=== PATIENT | female | born 2000 | race African-American/Black ===

== ENCOUNTER 2023-11-29 17:49 | Emergency (ER) | payer SELFPAY ==
[2023-11-29 18:27] LABS: Absolute Eosinophils 0.1 K/uL (0-0.5); Absolute Lymphocytes (CBC) 1.5 K/uL (0.7-4.9); Absolute Monocytes 0.4 K/uL (0.1-1.3); Absolute Neutrophil 2.2 K/uL (1.8-8.0); Basophils % 0.8 % (0-1.3); Eosinophils % 1.8 % (0-4.4); Hematocrit 40.8 % (36.0-45.0); Hemoglobin 13.3 g/dL (12.0-15.0); Lymphocytes % 36.1 % (15.3-44.8); MCH 24.6 pg (27.0-35.0); MCHC 32.5 g/dL (32.0-36.0); MCV 75.5 fL (80-100); Monocytes % 8.6 % (3.3-12.3); Neutrophils % 52.7 % (41.7-73.7); Nucleated Red Blood Cells % 0.3 % (0-0); Platelets 254 thou/uL (152-406); Red Cell Distribution Width 14.5 % (12.1-15.2)
[2023-11-29] MEDS ORDERED: ZIPRASIDONE MESYLA 20 MG/VIAL IM ONE (18:36)
[2023-11-29] MEDS ORDERED: WATER FOR INJ,STERILE 10 ML ONE (18:37)
[2023-11-29 18:47] LABS: PT Prothrombin Time 12.7 SECONDS (9.5-12.5); PTT, Activated Partial Thromb 35.3 SECONDS (24.3-36.9); Protime INR 1.16
[2023-11-29 18:51] LABS: ALT/SGPT 19 U/L (13-56); AST/SGOT 16 U/L (15-37); Albumin 3.7 g/dL (3.4-5.0); Alkaline Phosphatase 56 U/L (45-117); Anion Gap 8.1 mEq/L (5.0-15.0); BUN Blood Urea Nitrogen 9 mg/dL (7-18); Bicarbonate 27 mEq/L (21-32); Bilirubin Direct 0.2 mg/dL (0-0.2); Bilirubin Indirect, Calculated 0.3 mg/dL (0.2-0.8); Bilirubin Total 0.5 mg/dL (0.2-1.0); Globulin 3.8 g/dL (2.3-3.5); Glomerular Filtration Rate 107 ml/min (=/>90); Glucose Level 98 mg/dL (74-106); Potassium 3.1 mEq/L (3.5-5.1); Protein, Total 7.5 g/dL (6.4-8.2); Sodium Level 142 mEq/L (136-145)
--- NOTE | 2023-11-30 02:38 | EDPHYS ---
Physician Documentation [facility] Name: Jessica Boateng Age: 23 yrs Sex: Female : 2000 Arrival Date: 11/29/2023 Time: 17:49 Bed 7 Private MD: ED Physician Moncho Chand HPI: 11/28 18:07 This 23 yrs old Black Female presents to ER via EMS with complaints of agitation. sb4 18:13 Patient was brought in by EMS, escorted by PD. Per report, she was trying to enter the [facility] wrong apartment this afternoon. Uncle states that she got aggressive and was throwing/breaking chairs. He states that she has been off of her medications for her bipolar disorder. He also does not think she has been eating or drinking or showering. Patient denies any thoughts or plans of harming herself or others. States that she has been taking her medications but has just been "low "on some of them. States she takes clonidine, hydroxyzine, and iron pills. She does not know the dosage of any of them. PD placed her on an ZEE. CELERY STRIPPER: 18:14 LMP N/A - , Not mb9 Historical: - Allergies: 17:58 No Known Allergies; mb9 - Home Meds: 17:58 Clonazepam Oral [Active]; Clonidine Oral [Active]; mb9 - PMHx: 17:58 Bipolar disorder; mb9 - PSHx: 17:58 None; mb9 - Immunization history:: Adult Immunizations up to date. - Infectious Disease History:: Denies. - Social history:: Smoking status: Patient denies any tobacco usage or history of. ROS: 18:13 Constitutional: Negative for fever, chills, and weight loss, sb4 18:13 All other systems are negative, Exam: 18:13 Head/Face: Normocephalic, atraumatic. Eyes: Extra-ocular motions intact. Periorbital sb4 areas with no swelling, redness, or edema. Skin: Warm, dry with normal turgor. Normal color with no rashes, no lesions, and no evidence of cellulitis. MS/ Extremity: Pulses equal, no cyanosis. Neurovascular intact. Full, normal range of motion. 18:13 Constitutional: The patient appears in no acute distress, alert, awake, unkempt, odor- body odor 18:13 Psych: Behavior/mood is cooperative, Affect is calm, Oriented to person, place, time, Patient has no thoughts/intents to harm self or others. Judgement / Insight is normal. Delusions/hallucinations are not present. Vital Signs: 17:55 BP 140 / 86; Pulse 95; Resp 18; Temp 98; Pulse Ox 100% ; Weight 83.91 kg; Height 5 ft. mb9 5 in. ; Pain 0/10; 11/29 03:16 BP 138 / 84; Pulse 88; Resp 17; Pulse Ox 98% on R/A; kd3 11/28 17:55 Body Mass Index 30.79 (83.91 kg, 165.1 cm) mb9 11/28 17:55 Pain Scale: Adult mb9 MDM: 11/28 17:52 Patient medically screened. sb4 18:13 ED course: PD placed patient under ZEE and has contacted [facility] to come evaluate sb4 patient. 18:46 ED course: patient eloped from ED. code hendricks activated, PD notified. security escorted sb4 patient back to room. patient now being very uncooperative- cussing, kicking, screaming. soft restraints applied, geodon administered. PD at bedside. 20:04 ED course: patient reassessed, is sleepy but arousable. [facility] contacted and will [facility] evaluate patient via phone call when she is more awake. 21:59 ED course: patient reassessed. no change. still sleepy but arousable. not alert enough [facility] for [facility] evaluation.. 11/29 00:29 Data reviewed: vital signs, nurses notes, lab test result(s), EKG, radiologic studies. sb4 ED course: patient is awake, ready and requesting to speak with [facility]. 00:41 ED course: [facility] will be here in 1 hour and 15 min. sb4 02:06 ED course: alan whittaker at bedside. sb4 02:36 Management of patient was discussed with the following: Behavioral Health Provider: [facility] recommends outpatient follow up. Counseling: I had a detailed discussion with the patient and/or guardian regarding the historical points, exam findings, and any diagnostic results supporting the discharge/admit diagnosis, lab results, radiology results, the need for outpatient follow up, a psychiatrist, to return to the emergency department if symptoms worsen or persist or if there are any questions or concerns that arise at home. 11/28 18:11 Order name: Acetaminophen; Complete Time: 18:55 sb4 11/28 18:11 Order name: Basic Metabolic Panel; Complete Time: 18:55 sb4 11/28 18:11 Order name: CBC with Diff; Complete Time: 18:36 sb4 11/28 18:11 Order name: ETOH Level; Complete Time: 18:58 sb4 11/28 18:11 Order name: Hepatic Function; Complete Time: 18:55 sb4 11/28 18:11 Order name: PT-INR; Complete Time: 18:48 sb4 11/28 18:11 Order name: Ptt, Activated; Complete Time: 18:48 sb4 11/28 18:11 Order name: Salicylate; Complete Time: 18:58 sb4 11/28 18:11 Order name: EKG; Complete Time: 18:12 sb4 11/28 18:06 Order name: PO challenge; Complete Time: 18:06 sb4 11/28 18:11 Order name: EKG - Nurse/Tech; Complete Time: 18:21 sb4 11/28 18:11 Order name: Labs collected and sent; Complete Time: 18:21 sb4 11/28 18:11 Order name: Suicide Screening ([place]); Complete Time: 18:13 sb4 11/28 18:55 Order name: Restraint:Violent/Self Destructive (Adult:18yo or >); Complete Time: 18:56 sb4 EC/27 18:35 Rate is 114 beats/min. Rhythm is regular, Sinus tachycardia. VT interval is normal at sb4 138 msec. QRS interval is normal at 78 msec. QT interval is normal at 334 msec. No Q waves. T waves are Normal. No ST changes noted. Clinical impression: Sinus tachycardia and No evidence of ischemia. Interpreted by me. Reviewed by me. Administered Medications: 18:42 Drug: Geodon IM 10 mg IM once Route: IM; Site: left vastus lateralis; mb9 11/29 03:18 Follow up: Response: No adverse reaction kd3 Disposition Summary: 11/30/23 02:37 Discharge Ordered Notes: Location: Home sb4 Problem: new sb4 Symptoms: have improved sb4 Condition: Stable sb4 Diagnosis - Bipolar disorder, unspecified sb4 - Restlessness and agitation sb4 - Patient's other noncompliance with medication regimen sb4 Followup: sb4 - With: Private Physician - When: Tomorrow - Reason: Recheck today's complaints, Re-evaluation by your physician Discharge Instructions: - Discharge Summary Sheet sb4 - Managing Bipolar Disorder sb4 Forms: - Patient Portal Instructions sb4 - Leadership Thank You Letter sb4 Signatures: Dispatcher [employer] Savita Vargas PA-C PA-C sb4 Celina Arciniega RN RN mb9 Kait Jennings RN kd3 Corrections: (The following items were deleted from the chart) 11/28 18:21 18:11 IV Saline Lock ordered. sb4 mb9
--- NOTE | 2023-11-30 02:38 | ER ---
Nurse's Notes [facility] Name: Jessica Boateng Age: 23 yrs Sex: Female : 2000 Arrival Date: 11/29/2023 Time: 17:49 Bed 7 Private MD: Diagnosis: Bipolar disorder, unspecified;Restlessness and agitation;Patient's other noncompliance with medication regimen Presentation: 11/28 17:55 Chief complaint: EMS states: "Friend at apartment states that pt ran out of unknown mb9 bipolar Medication for the past few days. Pt was trying to get into the wrong apartment and threw a chair at the wall. Pt unwilling to answer questions.". Coronavirus screen: At this time, the client does not indicate any symptoms associated with coronavirus-19. Ebola Screen: No symptoms or risks identified at this time. Initial Sepsis Screen: Does the patient meet any 2 criteria? No. Patient's initial sepsis screen is negative. Does the patient have a suspected source of infection? No. Patient's initial sepsis screen is negative. Risk Assessment: Do you want to hurt yourself or someone else? Patient reports no desire to harm self or others. Onset of symptoms. 17:55 Method Of Arrival: EMS: [facility] 9 17:55 Acuity: ALEXEI 2 mb9 Triage Assessment: 17:59 General: Appears unkempt, Behavior is cooperative, agitated. Pain: Denies pain. EENT: mb9 No signs and/or symptoms were reported regarding the EENT system. Neuro: Hendrix Agitation-Sedation Scale (RASS): 0 - Alert and Calm Level of Consciousness is awake, alert, obeys commands, Oriented to person, place, situation. Cardiovascular: Patient's skin is warm and dry. Respiratory: Airway is patent Respiratory effort is even, unlabored, Respiratory pattern is regular, symmetrical. GI: No signs and/or symptoms were reported involving the gastrointestinal system. : No signs and/or symptoms were reported regarding the genitourinary system. Derm: Skin is pink, warm \\T\\ dry. Musculoskeletal: Range of motion: intact in all extremities. WARP TENSION TESTER: 18:14 LMP N/A - , Not mb9 Historical: - Allergies: 17:58 No Known Allergies; mb9 - Home Meds: 17:58 Clonazepam Oral [Active]; Clonidine Oral [Active]; mb9 - PMHx: 17:58 Bipolar disorder; mb9 - PSHx: 17:58 None; mb9 - Immunization history:: Adult Immunizations up to date. - Infectious Disease History:: Denies. - Social history:: Smoking status: Patient denies any tobacco usage or history of. Screenin:[facility] ED Fall Risk Assessment (Adult) History of falling in the last 3 months, mb9 including since admission No falls in past 3 months (0 pts) Confusion or Disorientation No (0 pts) Intoxicated or Sedated No (0 pts) Impaired Gait No (0 pts) Mobility Assist Device Used No (0 pt) Altered Elimination No (0 pt) Score/Fall Risk Level 0 - 2 = Low Risk Oriented to surroundings, Maintained a safe environment, Educated pt \\T\\ family on fall prevention, incl call for assistance when getting out of bed. Abuse screen: Denies threats or abuse. Nutritional screening: No deficits noted. Tuberculosis screening: No symptoms or risk factors identified. Assessment: 17:55 Reassessment: [place] [employer] at bedside. mb9 17:55 Reassessment: pt denies any suicidal or homicidal ideations. mb9 18:30 Reassessment: Pt wandering ER halls and refusing to go back to room. Pt hitting [facility] and doors. Lyla nieves called and Radha GRIGGS notified. 18:40 Reassessment: Radha GRIGGS at bedside. Pt punching, screaming, cussing, and hitting [facility] staff/PD. 23:06 General: Appears in no apparent distress. Behavior is drowsy, quiet. General: Pt kd3 remains sedated. Pt is resting in the stretcher with eyes closed. NAD. respirations are even and unlabored. Skin is warm and dry. . Respiratory: Airway is patent Trachea midline Respiratory effort is even, unlabored, Respiratory pattern is regular, symmetrical. 11/29 03:14 General: Appears in no apparent distress. Behavior is calm, cooperative. General: Pt kd3 was evaluated at the bedside and was recommended to follow up out patient. Pt verbalizes understanding of follow up direction and provided discharge instructions. Pt has no new questions or requests at this time. Pt discharged from ED. . Neuro: Level of Consciousness is awake, alert, obeys commands, Oriented to person, place, time, situation. Vital Signs: 11/28 17:55 BP 140 / 86; Pulse 95; Resp 18; Temp 98; Pulse Ox 100% ; Weight 83.91 kg; Height 5 ft. mb9 5 in. ; Pain 0/10; 11/29 03:16 BP 138 / 84; Pulse 88; Resp 17; Pulse Ox 98% on R/A; kd3 11/28 17:55 Body Mass Index 30.79 (83.91 kg, 165.1 cm) mb9 11/28 17:55 Pain Scale: Adult mb9 ED Course: 11/28 17:51 Patient arrived in ED. sb4 17:51 Savita Mathias PA-C is PHCP. sb4 17:52 Moncho Chand MD is Attending Physician. sb4 17:54 Celina Arciniega, ESTEFANIA is Primary Nurse. mb9 17:55 Arm band placed on. mb9 17:57 Triage completed. mb9 17:59 Placed in gown. Bed in low position. Call light in reach. Side rails up X 1. Provided mb9 Education on: press call light if needing anything. Client placed on continuous cardiac and pulse oximetry monitoring. NIBP monitoring applied. 18:00 No provider procedures requiring assistance completed. mb9 18:10 Patient requests food. Patient requests liquids. mb9 18:30 CALLED RADHA vanegas 19:00 Safety checks: Items removed: yes. Door open/sign placed on door: yes. Family/friend ty present: no. Sitter present: Yes. 19:00 Sitter at bedside. ty 19:10 Patient slamming right arm and elbow on bed asking to leave. ty 19:15 Patients right wrist freed from restraint. Four point restraints checked and adjusted ty to allow patient to sit up and drink water, patient concerned about choking on water. Diet: Patient given water. Tolerated well Required assistance. Due to restraints. 19:25 Patient asleep. ty 19:31 Patient checked for abrasions or wounds, none visible at this time. ty 19:45 spoke with Gilma Luna at transfer center, started columbaal stated once patient wakes up to call back to do an over the phone evaluation. 19:58 Attempted to speak with PT regarding speaking to [facility] PT not able to at this ty time. Reassess at 2100. 20:40 Restraints removed from PT. ty 21:07 Reassessed PT to speak with [facility] PT is still unable to speak with [facility]. ty 22:14 Reassessed PT to spaeak with [facility] PT unable to hold conversation. ty 11/29 01:58 [facility] arrived for a face to face Evaluation. vk 03:17 Patient did not have IV access during this emergency room visit. kd3 Restraints: 11/28 18:45 Violent/Self Destructive Restraint: Restraint Order: Initial/Renewal: Initial order mb9 obtained. Initiated November 29, 2023 at 18:45 Staff present during the initiation of restraint: Jeff RN. Radha RODRÍGUEZ . Family Notification/Education: Education provided to family/significant other/legally authorized operations support representative. Monitoring: Respiratory status Respirations even/unlabored, no distress. Circulation: Skin warm and dry, capillary refill WNL. Skin integrity: Intact, healthy with good turgor. No injuries due to Restraints noted. Mental status: agitated/restless, Observed actions/behavior: destructive, violent, harming self/others, Less restrictive alternatives attempted: decreased environmental stimuli, 1:1 patient care, placed near Nurse station, medicated for pain/anxiety, trained sitter in room, Alternative interventions: Ineffective. Clinical justification for use: Violent/self destructing behavior impacts therapeutic environment. Poses a serious danger to physical safety of self \\T\\ others. 18:45 Violent/Self Destructive Restraint: Restraint status: Side rails up Started. Soft wrist mb9 restraint (Right) Started. Soft wrist restraint (Left) Started. Soft ankle restraint (Right) Started. Soft ankle restraint (Left) Started. Readiness for Discontinue: Criteria not met. Patient still violent/self destructive and Alternative interventions still ineffective. Restraint continued. 19:00 Violent/Self Destructive Restraint: Readiness for Discontinue: Criteria not met. mb9 Patient still violent/self destructive and Alternative interventions still ineffective. Restraint continued. Assumed responsibility of patient in restraints. Circumstances for use: Safety of staff. Safety of patient. Current physical, emotional \\T\\ behavioral status: agitated/restless, Report given to ESTEFANIA Erickson. Administered Medications: 18:42 Drug: Geodon IM 10 mg IM once Route: IM; Site: left vastus lateralis; mb9 11/29 03:18 Follow up: Response: No adverse reaction kd3 Medication: 11/28 17:59 VIS not applicable for this client. mb9 Outcome: 11/29 02:37 Discharge ordered by . sb4 03:17 Discharged to home ambulatory, kd3 03:17 Condition: stable 03:17 Discharge instructions given to patient, Instructed on discharge instructions, follow up and referral plans. Demonstrated understanding of instructions, follow-up care, 03:18 Patient left the ED. kd3 Signatures: Bella Seals Kyli, RN RN kd3 Savita Mathias, PA-C PA-C sb4 Celina Arciniega RN RN mb9 Kaye Moses Tylor ty Corrections: (The following items were deleted from the chart) 11/28 18:10 17:55 Acuity: ALEXEI 3 mb9 mb9 18:13 17:55 Acuity: ALEXEI 4 mb9 mb9 18:35 18:30 BP 78 / 40; Pulse 87bpm; Resp 18bpm; Pulse Ox 85% RA; mb9 ll1 18:54 17:55 Acuity: ALEXEI 3 mb9 mb9 19:34 19:00 Four point restraints checked and adjusted to allow patient to sit up and drink ty water, patient concerned about choking on water ty
[2023-11-30 03:42] VITALS: BP 138/84; TEMP 98; O2SAT 98
--- NOTE | 2023-11-30 14:12 | EKG ---
Test Date: 2023-11-29 Test Time: 18:21:13 [place] [employer]: NONA MEASUREMENT RESULTS: Intervals: Rate: 114 NC: 138 QRSD: 78 QT: 334 QTc: 460 [place]: P: 48 NC: 138 QRS: 69 T: 42 INTERPRETIVE STATEMENTS: Sinus tachycardia Otherwise normal ECG No previous ECG available for comparison Electronically Signed On 11-30-23 14:10:03 CDT by René Haq
== END 2023-11-30 03:18 | disposition home or self-care (01) ==
LOC: ER 17:49
DX: R45.1 Restlessness and agitation (principal); F31.9 Bipolar disorder, unspecified; Z91.148 Patient's other noncompliance with medication regimen for other reason; Z78.1 Physical restraint status
CPT/HCPCS: 36415; 80048; 80076; 80143; 80179; 82077; 85025; 85610; 85730; 93005; 96372; 99285; J3486

== ENCOUNTER 2023-12-23 22:36 | Emergency (ER) | payer SELFPAY ==
--- OUTSIDE RECORDS SUMMARY | 2023-12-23 22:39 | XMS REPORT | Continuity of Care Document ---
Author Name Unknown Address [address] [place] [address] [employer] Address [address] [place] [address] [address] [place] [address] Care Team Providers Care Marketing Automation Specialist Name Role Phone Unavailable Unavailable Unavailable Encounters Start Date/Time End Date/Time Encounter Type Admission Type Attending Clinicians Care Facility Care Department Encounter ID Source 2023-11-28 14:19:19 2023-11-28 23:59:00 [id number]
[2023-12-24 00:53] LABS: Absolute Eosinophils 0.1 K/uL (0-0.5); Absolute Lymphocytes (CBC) 1.7 K/uL (0.7-4.9); Absolute Monocytes 0.3 K/uL (0.1-1.3); Absolute Neutrophil 2.6 K/uL (1.8-8.0); Basophils % 0.8 % (0-1.3); Eosinophils % 1.1 % (0-4.4); Hemoglobin 13.9 g/dL (12.0-15.0); Lymphocytes % 35.9 % (15.3-44.8); MCH 24.8 pg (27.0-35.0); MCHC 33.1 g/dL (32.0-36.0); MPV 9.2 fL (7.6-11.3); Monocytes % 7.2 % (3.3-12.3); Nucleated Red Blood Cells % 0.1 % (0-0); Platelets 258 thou/uL (152-406); Red Cell Distribution Width 14.7 % (12.1-15.2)
[2023-12-24 01:07] LABS: PT Prothrombin Time 13.2 SECONDS (9.4-12.5); PTT, Activated Partial Thromb 32.2 SECONDS (24.3-36.9); Protime INR 1.21
[2023-12-24 01:26] LABS: ALT/SGPT 29 U/L (13-56); Albumin 3.7 g/dL (3.4-5.0); Alkaline Phosphatase 55 U/L (45-117); Anion Gap 9.7 mEq/L (5.0-15.0); BUN Blood Urea Nitrogen 6 mg/dL (7-18); Bicarbonate 26 mEq/L (21-32); Bilirubin Direct 0.2 mg/dL (0-0.2); Bilirubin Indirect, Calculated 0.4 mg/dL (0.2-0.8); Bilirubin Total 0.6 mg/dL (0.2-1.0); Globulin 3.8 g/dL (2.3-3.5); Glomerular Filtration Rate 123 ml/min (=/>90); Glucose Level 93 mg/dL (74-106); Potassium 2.7 mEq/L (3.5-5.1); Protein, Total 7.5 g/dL (6.4-8.2); Sodium Level 143 mEq/L (136-145)
[2023-12-24 01:27] LABS: AST/SGOT < 10 U/L (15-37)
[2023-12-24] MEDS ORDERED: POTASSIUM CL SA 10 MEQ TAB PO ONE (03:12)
[2023-12-24 06:53] LABS: Specific Gravity 1.008 (1.005-1.030)
[2023-12-24 06:54] LABS: Specific Gravity 1.008 (1.005-1.030); Sqamous Epithelial <5 /HPF (None Seen); Urine Bacteria <20 /HPF (<20); Urine Bilirubin NEGATIVE (Negative); Urine Blood Negative (Negative); Urine Clarity Turbid (Clear); Urine Color Light-Yellow (Yellow); Urine Culture Reflex Order NOT NEEDED; Urine Glucose NEGATIVE (Negative); Urine Ketones NEGATIVE (Negative); Urine Microscopic Reflex YN ORDER UMIC; Urine Mucus Slight /HPF (None Seen); Urine Nitrite NEGATIVE (Negative); Urine Protein NEGATIVE (Negative); Urine RBC <5 /HPF (None Seen); Urine Urobilinogen Normal (Normal); Urine WBC <5 /HPF (<5)
[2023-12-24 07:01] LABS: Barbiturates NEGATIVE (NEGATIVE); Benzodiazepines NEGATIVE (NEGATIVE); Cocaine NEGATIVE (NEGATIVE); METHAMPHETAM NEGATIVE (NEGATIVE); Methadone NEGATIVE (NEGATIVE); Opiates NEGATIVE (NEGATIVE); Phencyclidine NEGATIVE (NEGATIVE); THC Cannibis NEGATIVE (NEGATIVE)
--- NOTE | 2023-12-24 11:05 | ER ---
Nurse's Notes [facility] Name: Jessica Boateng Age: 23 yrs Sex: Female : 2000 Arrival Date: 12/23/2023 Time: 22:36 Bed 15 Private MD: Diagnosis: Decompensated bipolar disorder Presentation: 12/22 22:36 Chief complaint: brought in on ZEE by Jamie GRIGGS. Per PD, pt has HX of bipolar disorder lg3 and unmedicated. PT was physically combative with family and officers [employer]. PT denies SI/HI but a danger to herself and others. PT not willing to communicate to staff on arrival to ED. PT uncooperative with request from staff/provider at this time. Coronavirus screen: At this time, unable to obtain information related to travel outside the [place] Ebola Screen: No symptoms or risks identified at this time. Risk Assessment: Do you want to hurt yourself or someone else? Unable to obtain. Onset of symptoms is unknown. 22:36 Method Of Arrival: Law Enforcement: Jamie GRIGGS lg3 22:36 Acuity: ALEXEI 2 lg3 12/23 03:30 Initial Sepsis Screen: Does the patient meet any 2 criteria? No. Patient's initial jw7 sepsis screen is negative. Does the patient have a suspected source of infection? No. Patient's initial sepsis screen is negative. Triage Assessment: 12/22 22:36 General: Appears unkempt, Behavior is combative, inappropriate for age, uncooperative. lg3 Pain: Denies pain. EENT: No deficits noted. Neuro: Hendrix Agitation-Sedation Scale (RASS): +4 Combative Level of Consciousness is awake, stuporous. Cardiovascular: No deficits noted. Capillary refill < 3 seconds Clubbing of nail beds is absent JVD is absent Patient's skin is warm and dry. Respiratory: No deficits noted. Airway is patent Respiratory effort is even, unlabored, Respiratory pattern is regular, symmetrical. GI: No deficits noted. Abdomen is round non-distended, obese. : No deficits noted. Derm: No deficits noted. Skin is intact, is healthy with good turgor, Skin is dry, Skin is normal, Skin temperature is warm. Musculoskeletal: No deficits noted. Circulation, motion, and sensation intact. Range of motion: intact in all extremities. Historical: - Allergies: 22:52 Unable to obtain; lg3 - PMHx: 22:52 Bipolar disorder; lg3 - PSHx: 22:52 Unable to Obtain; lg3 - Immunization history:: Adult Immunizations unknown. - Infectious Disease History:: Denies. - Social history:: Smoking status: unknown. - Family history:: not pertinent. Screenin:36 [facility] ED Fall Risk Assessment (Adult) History of falling in the last 3 months, lg3 including since admission No falls in past 3 months (0 pts) Confusion or Disorientation No (0 pts) Intoxicated or Sedated No (0 pts) Impaired Gait No (0 pts) Mobility Assist Device Used No (0 pt) Altered Elimination No (0 pt) Score/Fall Risk Level 0 - 2 = Low Risk Oriented to surroundings, Maintained a safe environment, Educated pt \\T\\ family on fall prevention, incl call for assistance when getting out of bed, Assessed \\T\\ reinforced patient's understanding of fall precautions, Provided non-skid footwear. Abuse screen: Denies threats or abuse. Denies injuries from another. Nutritional screening: No deficits noted. Tuberculosis screening: No symptoms or risk factors identified. Assessment: 22:54 General: see triage assessment. lg3 06 00:21 General: pt quietly resting with eyes closed at this time. lg3 04:02 General: Pt resting with eyes closed, respirations are even and unlabored, 14 RR, 98% jw7 O2 RA. . 04:52 Reassessment: Patient appears in no apparent distress at this time. No changes from jw7 previously documented assessment. Patient and/or family updated on plan of care and expected duration. Pain level reassessed. 05:30 General: Patient up to the bathroom, requested a urine sample, patient threw an empty jw7 urine cup in the trash. . 05:57 Reassessment: Patient appears in no apparent distress at this time. No changes from jw7 previously documented assessment. Patient and/or family updated on plan of care and expected duration. Pain level reassessed. 06:57 Reassessment: Patient appears in no apparent distress at this time. No changes from jw7 previously documented assessment. Patient and/or family updated on plan of care and expected duration. Pain level reassessed. 07:00 Reassessment: Patient appears in no apparent distress at this time. No changes from kc6 previously documented assessment. Patient and/or family updated on plan of care and expected duration. Pain level reassessed. 07:48 Reassessment: pt is awake and alert, eating breakfast, pt denies SI, HI, or kc6 auditory/visual hallucinations at this time. 08:18 Reassessment: Patient appears in no apparent distress at this time. No changes from 6 previously documented assessment. Patient and/or family updated on plan of care and expected duration. Pain level reassessed. 09:08 Reassessment: Patient appears in no apparent distress at this time. No changes from 6 previously documented assessment. Patient and/or family updated on plan of care and expected duration. Pain level reassessed. 10:27 Reassessment: [facility] at bedside evaluating patient. [facility] 10:45 Reassessment: [facility] recommending inpatient at this time. [facility] 10:49 Reassessment: Patient appears in no apparent distress at this time. No changes from 6 previously documented assessment. Patient and/or family updated on plan of care and expected duration. Pain level reassessed. 12:13 Reassessment: Patient appears in no apparent distress at this time. No changes from kc6 previously documented assessment. Patient and/or family updated on plan of care and expected duration. Pain level reassessed. 13:49 Reassessment: Patient appears in no apparent distress at this time. No changes from 6 previously documented assessment. Patient and/or family updated on plan of care and expected duration. Pain level reassessed. 14:20 Reassessment: pt appears to be getting increasingly agitated and anxious. pt attempted [facility] to wander the hallway in front of nurses station. Dr. Gonzalez notified. OK to admin PRN Hydroxizine 50mg PO 1X. 15:20 Reassessment: Patient appears in no apparent distress at this time. No changes from 6 previously documented assessment. Patient and/or family updated on plan of care and expected duration. Pain level reassessed. 16:36 Reassessment: Patient appears in no apparent distress at this time. No changes from 6 previously documented assessment. Patient and/or family updated on plan of care and expected duration. Pain level reassessed. 17:36 Reassessment: Patient appears in no apparent distress at this time. No changes from 6 previously documented assessment. Patient and/or family updated on plan of care and expected duration. Pain level reassessed. 18:36 Reassessment: Patient appears in no apparent distress at this time. No changes from kc6 previously documented assessment. Patient and/or family updated on plan of care and expected duration. Pain level reassessed. 19:00 Reassessment: Patient appears in no apparent distress at this time. Patient and/or cp4 family updated on plan of care and expected duration. Pain level reassessed. Patient is having active hallucinations. Provider notified. 19:45 Reassessment: Patient states " I was having hallucinations and I needed the needle to cp4 lower my adrenaline." Patient given Geodon. 12/24 05:08 Reassessment: Received report from Nati MAC. Patient has eyes closed. tm6 05:31 Reassessment: patient sitting up in bed. Patient offered water, food, and bathroom. tm6 Patient declined all three. 06:05 Reassessment: Patient used restroom, washed face, brushed teeth, used bathing clothes tm6 for bath, changed into new paper scrubs. Complete linen change was provided. 06:12 Reassessment: water provided to patient. tm6 07:15 Reassessment: pt is awake and alert, laying in bed. pt denies SI or HI, or kc6 auditory/visual hallucinations at this time. 08:15 Reassessment: nurse to nurse report given to ESTEFANIA Fair at [facility]. kc6 09:15 Reassessment: Patient appears in no apparent distress at this time. No changes from kc6 previously documented assessment. Patient and/or family updated on plan of care and expected duration. Pain level reassessed. Psych: 12/23 03:30 [place] Suicide Severity Screening: In the past month, have you wished you were jw7 or wished you could go to sleep and not wake up? Patient responds "No." "In the past month, have you actually had any thoughts of killing yourself?" Patient responds "no." "In your lifetime, have you ever done anything, started to do anything, or prepared to do anything to end your life?" Patient responds "no.". Safety Checks: Personal items have been removed. Door is open. No visitors are present at this time. 03:30 Subjective: Patient's mood is irritable, Delusions are denied, Hallucinations are jw7 denied. Objective: Patient is uncooperative, irritable, Speech is slow, soft, Affect is blunted, flat. Interventions: Removed personal items and placed in bag. Patient placed in hospital gown. Searched person for dangerous items. Belonging list filled out. Pt denies substance abuse. Commitment: Commitment papers completed. Vital Signs: 12/22 23:05 BP 126 / 89; Pulse 77; Resp 18 S; Temp 97.3(O); Pulse Ox 100% on R/A; Weight 81.65 kg lg3 (R); Height 5 ft. 6 in. (R); 12/23 07:25 BP 133 / 92; Pulse 82; Resp 16; Temp 97.5; Pulse Ox 100% on R/A; aw1 12/24 05:36 BP 126 / 95; Pulse 75; Resp 17; Temp 97.5(TE); Pulse Ox 100% on R/A; Pain 0/10; tm6 08:36 BP 122 / 87; Pulse 77; Resp 16; Temp 98.5; Pulse Ox 100% on R/A; Pain 0/10; zm 12/22 23:05 Body Mass Index 29.05 (81.65 kg, 167.64 cm) lg3 12/24 05:36 Pain Scale: Adult tm6 08:36 Pain Scale: Adult zm [place] Coma Score: 12/23 05:32 Eye Response: spontaneous(4). Motor Response: obeys commands(6). Verbal Response: sp4 oriented(5). Total: 15. ED Course: 12/22 22:36 Safety Checks: Personal items have been removed. The door is open or patient has been lg3 placed in a hallway bed/chair. There are no family/friend visitors at this time Sitter present at this time. 22:36 Arm band placed on right wrist. lg3 22:36 Patient has correct armband on for positive identification. Bed in low position. lg3 Patient is placed in psych hold. 22:37 Patient arrived in ED. jj6 22:39 Fredy Wright MD is Attending Physician. sp4 22:41 Iris Padron RN is Primary Nurse. lg3 22:52 Triage completed. lg3 12/23 00:00 EKG done, by ED staff, reviewed by Fredy Wright MD. ty 00:08 Inserted saline lock: 22 gauge in right antecubital area, using aseptic technique. ty Blood collected. 00:09 Initial lab(s) drawn, by me, sent to lab. ty 03:30 Provided Education on: Use of Call Light. jw7 06:42 Straight cath inserted, using sterile technique, Specimen obtained. Patient tolerated lg3 well. 06:59 Attending Physician role handed off by Fredy Wright MD rt 06:59 Joselito Gonzalez MD is Attending Physician. rt 07:00 Safety Checks: Personal items have been removed. The door is open or patient has been kc6 placed in a hallway bed/chair. There are no family/friend visitors at this time Sitter present at this time. 07:00 Report received from Soumya Ann RN. kc6 07:00 Warm blanket given. Pillow given. Patient is placed in psych hold. kc6 07:48 Diet: Patient given a regular meal tray. kc6 07:55 [facility] was contacted for Psych evaluation spoke with Imani from [place] [id number] [facility]. 09:07 Halima from [facility] contacted back stating she will be here to evaluate pt in 30 [facility] min. 10:27 [facility] at bedside. aw1 10:45 Notified primary nurse of [facility] departure. aw1 18:45 Assisted to bathroom. kc6 19:00 Report given to Ann La RN. kc6 12/24 07:00 Safety Checks: Personal items have been removed. The door is open or patient has been kc6 placed in a hallway bed/chair. There are no family/friend visitors at this time Sitter present at this time. 07:00 Report received from Haseeb Lan RN. kc6 07:00 Patient is placed in psych hold. kc6 07:03 Report given to Makayla MAC. tm6 07:37 Door closed. Noise minimized. Visitors limited. Lights dimmed. Warm blanket given. kc6 Pillow given. 07:45 faxed clinical's. sp 08:40 [facility] Accepted pt for Transfer. Manjula called with information Dr. Meng Martínez Admin approval Jhoana Szymanski. 08:50 called [facility] for transfer. sp 09:37 No provider procedures requiring assistance completed. IV discontinued, intact, kc6 bleeding controlled, No redness/swelling at site. Pressure dressing applied. Administered Medications: 12/22 22:57 Drug: Geodon IM 40 mg IM once Route: IM; Site: right gluteus; lg3 12/23 05:55 Follow up: Response: No adverse reaction; Marked relief of symptoms jw7 05:55 Drug: Potassium Chloride PO 40 mEq PO once Route: PO; jw7 06:41 Follow up: Response: No adverse reaction jw7 14:30 Drug: hydrOXYzine PO 50 mg PO once Route: PO; kc6 15:33 Follow up: Response: No adverse reaction; Anxiety decreased; RASS: Alert and Calm (0) kc6 19:45 Drug: Geodon IM 40 mg IM once Route: IM; Site: right vastus lateralis; cp4 Medication: 12/24 09:38 VIS not applicable for this client. kc6 Outcome: 12/23 11:04 ER care complete, transfer ordered by MD. rt 12/24 09:37 Transferred by ground EMS Transfer form completed. Note: pt to Sneha Martins with [facility]. report called to ESTEFANIA Fair Condition: stable Instructed on the need for transfer, 09:38 Patient left the ED. 6 Signatures: Bella Seals Lacie, RN RN lg3 Kathy Rayj6 Soumya Ann RN RN jw7 Binta Liu Kaitlyn, RN RN kc6 Joselito Gonzalez MD MD rt Fredy Wright MD MD sp4 Beatrice Pal awNati Hensley cp4 Pearl Currie 12 Haseeb Lan RN RN 6 Aubrey Sifuentes ty Corrections: (The following items were deleted from the chart) 12/22 22:56 22:54 [facility] ED Fall Risk Assessment (Adult) History of falling in the last 3 months, lg3 including since admission No falls in past 3 months (0 pts) Confusion or Disorientation No (0 pts) Intoxicated or Sedated No (0 pts) Impaired Gait No (0 pts) Mobility Assist Device Used No (0 pt) Altered Elimination No (0 pt) Score/Fall Risk Level 0 - 2 = Low Risk Oriented to surroundings, Maintained a safe environment, Educated pt \\T\\ family on fall prevention, incl call for assistance when getting out of bed, Assessed \\T\\ reinforced patient's understanding of fall precautions, Provided non-skid footwear, lg3 22:56 22:54 Abuse screen: Denies threats or abuse. Denies injuries from another. lg3 lg3 :56 22:54 Nutritional screening: No deficits noted. lg3 lg3 :56 22:54 Tuberculosis screening: No symptoms or risk factors identified. lg3 lg3 12/23 10:49 07:00 Reassessment: Patient appears in no apparent distress at this time. No changes kc6 from previously documented assessment. Patient and/or family updated on plan of care and expected duration. Pain level reassessed. Patient is alert, oriented x 3, equal unlabored respirations, skin warm/dry/pink. kc6 10:49 08:18 Reassessment: Patient appears in no apparent distress at this time. No changes kc6 from previously documented assessment. Patient and/or family updated on plan of care and expected duration. Pain level reassessed. Patient is alert, oriented x 3, equal unlabored respirations, skin warm/dry/pink. kc6 10:49 09:08 Reassessment: Patient appears in no apparent distress at this time. No changes kc6 from previously documented assessment. Patient and/or family updated on plan of care and expected duration. Pain level reassessed. Patient is alert, oriented x 3, equal unlabored respirations, skin warm/dry/pink. kc6
--- NOTE | 2023-12-24 11:05 | EDPHYS ---
Physician Documentation [facility] Name: Jessica Boateng Age: 23 yrs Sex: Female : 2000 Arrival Date: 12/23/2023 Time: 22:36 Bed 15 Private MD: ED Physician Joselito Gonzalez HPI: 12/22 22:39 This 23 yrs old Black Female presents to ER via Unassigned with complaints of Altered sp4 Mental Status. 12/23 05:32 23-year-old female, acute combative behavior at home history of bipolar disorder.. sp4 Patient brought here by police with ZEE secondary to combative disruptive and aggressive behavior at home. On arrival patient has trouble answering questions and appears agitated.. Historical: - Allergies: 12/22 22:52 Unable to obtain; lg3 - PMHx: 22:52 Bipolar disorder; lg3 - PSHx: 22:52 Unable to Obtain; lg3 - Immunization history:: Adult Immunizations unknown. - Infectious Disease History:: Denies. - Social history:: Smoking status: unknown. - Family history:: not pertinent. ROS: 12/23 05:32 Constitutional: Negative for fever, chills, and weight loss, positive for anger, sp4 frustration, combative behavior All other systems are negative, Exam: 05:32 Constitutional: This is a well developed, well nourished patient who is awake, alert, sp4 and in no acute distress. 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 Eyes: Pupils equal round and reactive to light, extra-ocular motions intact. Lids and lashes normal. Conjunctiva and sclera are not injected. Cornea within normal limits. Periorbital areas with no swelling, redness, or edema. ENT: Nares patent. No nasal discharge, no septal abnormalities noted. Tympanic membranes are normal and external auditory canals are clear. Oropharynx with no redness, swelling, or masses, exudates, or evidence of obstruction, uvula midline. Mucous membranes moist. Neck: Trachea midline, no thyromegaly or masses palpated, and no cervical lymphadenopathy. Supple, full range of motion without nuchal rigidity, or vertebral point tenderness. Chest/axilla: Normal chest wall appearance and motion. Nontender with no deformity. No lesions are appreciated. Cardiovascular: Regular rate and rhythm with a normal S1 and S2. No gallops, murmurs, or rubs. Normal PMI, no JVD. No pulse deficits. Respiratory: Lungs have equal breath sounds bilaterally, clear to auscultation and percussion. No rales, rhonchi or wheezes noted. No increased work of breathing, no retractions or nasal flaring. Abdomen/GI: Soft, with normal bowel sounds. No distension or tympany. No guarding or rebound. No evidence of tenderness throughout. Back: No spinal tenderness. No costovertebral tenderness. Skin: Warm, dry with normal turgor. Normal color with no rashes, no lesions, and no evidence of cellulitis. MS/ Extremity: Pulses equal, no cyanosis. Neurovascular intact. Full, normal range of motion. Neuro: Awake and alert, Cranial nerves II-XII grossly intact. Motor strength 5/5 in all extremities. Sensory grossly intact. Not cooperative with exam, grossly no lateralizing deficits Psych: Awake, alert, with orientation to person, positive for agitation, and anger 07:51 ECG was reviewed by the Attending Physician. EKG time 2358, normal sinus rhythm rate of sp4 92. Vital Signs: 12/22 23:05 BP 126 / 89; Pulse 77; Resp 18 S; Temp 97.3(O); Pulse Ox 100% on R/A; Weight 81.65 kg lg3 (R); Height 5 ft. 6 in. (R); 12/23 07:25 BP 133 / 92; Pulse 82; Resp 16; Temp 97.5; Pulse Ox 100% on R/A; aw1 12/24 05:36 BP 126 / 95; Pulse 75; Resp 17; Temp 97.5(TE); Pulse Ox 100% on R/A; Pain 0/10; tm6 08:36 BP 122 / 87; Pulse 77; Resp 16; Temp 98.5; Pulse Ox 100% on R/A; Pain 0/10; zm 12/22 23:05 Body Mass Index 29.05 (81.65 kg, 167.64 cm) lg3 12/24 05:36 Pain Scale: Adult tm6 08:36 Pain Scale: Adult zm [place] Coma Score: 12/23 05:32 Eye Response: spontaneous(4). Motor Response: obeys commands(6). Verbal Response: sp4 oriented(5). Total: 15. MDM: 12/22 22:40 Patient medically screened. 4 12/23 07:16 Transition of care: After a detail discussion of the patient's case, care is sp4 transferred to Joselito Gonzalez MD. 11:49 Differential Diagnosis: MR, schizophrenia, bipolar. Data reviewed: vital signs, nurses rt notes, lab test result(s). Consideration of Admission/Observation Patient requires transfer for psychiatric stabilization. Management of patient was discussed with the following: Documentation Consultant: Discussed with [facility], recommends inpatient hospitalization. Care significantly affected by the following chronic conditions: Bipolar disorder. 12/22 22:40 Order name: Acetaminophen; Complete Time: :34 [facility] 12/22 22:40 Order name: Basic Metabolic Panel; Complete Time: [facility] 12/22 22:40 Order name: CBC with Diff; Complete Time: [facility] 12/22 22:40 Order name: ETOH Level; Complete Time: [facility] 12/22 22:40 Order name: Hepatic Function; Complete Time: [facility] 12/22 22:40 Order name: PT-INR; Complete Time: : [facility] 12/22 22:40 Order name: Test, Urine; Complete Time: 07:01 [facility] 12/22 22:40 Order name: Ptt, Activated; Complete Time: [facility] 12/22 22:40 Order name: Salicylate; Complete Time: : [facility] 12/22 22:40 Order name: Urinalysis w/ reflexes; Complete Time: 07:01 [facility] 12/22 22:40 Order name: Urine Drug Screen; Complete Time: 07:01 [facility] 12/22 22:40 Order name: EKG; Complete Time: 22:41 [facility] 12/22 22:40 Order name: EKG - Nurse/Tech; Complete Time: 00:00 [facility] 12/22 22:40 Order name: IV Saline Lock; Complete Time: 00:22 [facility] 12/22 22:40 Order name: Labs collected and sent; Complete Time: 00:22 [facility] 12/22 22:40 Order name: Suicide Precautions; Complete Time: 22:58 [facility] 12/22 22:40 Order name: Suicide Screening ([place]); Complete Time: 22:58 [facility] 12/23 06:42 Order name: Straight Cath - Urine; Complete Time: : lg3 EC:51 Rate is 92 beats/min. Rhythm is regular, Normal Sinus Rhythm. QRS [place] is Normal. [place] sp4 interval is normal. QRS interval is normal. QT interval is normal. No Q waves. T waves are Normal. No ST changes noted. Clinical impression: No evidence of ischemia. Interpreted by me. Reviewed by me. Administered Medications: 12/22 22:57 Drug: Geodon IM 40 mg IM once Route: IM; Site: right gluteus; lg3 12/23 05:55 Follow up: Response: No adverse reaction; Marked relief of symptoms jw7 05:55 Drug: Potassium Chloride PO 40 mEq PO once Route: PO; jw7 06:41 Follow up: Response: No adverse reaction jw7 14:30 Drug: hydrOXYzine PO 50 mg PO once Route: PO; kc6 15:33 Follow up: Response: No adverse reaction; Anxiety decreased; RASS: Alert and Calm (0) kc6 19:45 Drug: Geodon IM 40 mg IM once Route: IM; Site: right vastus lateralis; cp4 Disposition Summary: 12/24/23 11:04 Transfer Ordered Notes: Transfer Location: Psych Facility rt Reason: Higher level of care rt Condition: Fair rt Problem: new rt Symptoms: are unchanged rt Accepting Physician: (12/25/23 09:38) kc6 Diagnosis - Decompensated bipolar disorder rt Discharge Instructions: - Discharge Summary Sheet jr12 Forms: - Medication Reconciliation Form rt - SBAR form jr12 Signatures: Dispatcher [employer] Iris Ayala RN RN lg3 Soumya Ann RN RN jw7 Makayla Lizama RN RN kc6 Joselito Gonzalez MD MD rt Fredy Wright MD MD sp4 Darius Guevara MD MD ec2 Potter, Christina cp4 Corrections: (The following items were deleted from the chart) 12/22 22:41 22:41 ACETAMINOPHEN+C.LAB.BRZ ordered. EDMS EDMS 22:41 22:41 BASIC METABOLIC PANEL+C.LAB.BRZ ordered. EDMS EDMS 22:41 22:41 CBC+H.LAB.BRZ ordered. EDMS EDMS 22:41 22:41 ETHANOL+C.LAB.BRZ ordered. EDMS EDMS 22:41 HEPATIC FUNCTION+C.LAB.BRZ ordered. EDMS EDMS : 22:41 PROTIME (+INR)+COAG.LAB.BRZ ordered. EDMS EDMS : 22:41 Test, Urine+UC.LAB.BRZ ordered. EDMS EDMS : 22:41 PTT, ACTIVATED+COAG.LAB.BRZ ordered. EDMS EDMS 22:41 SALICYLATE+C.LAB.BRZ ordered. EDMS EDMS : 22:41 Urinalysis+U.LAB.BRZ ordered. EDMS EDMS : 22:41 URINE DRUG SCREEN+UC.LAB.BRZ ordered. EDMS EDMS 12/24 09:38 12/23 11:04 rt kc6
--- NOTE | 2023-12-24 12:32 | EKG ---
Test Date: 2023-12-23 Test Time: 23:58:14 Electrical Engineering Teacher: BARRETT MEASUREMENT RESULTS: Intervals: Rate: 92 DC: 134 QRSD: 100 QT: 366 QTc: 452 [place]: P: 28 DC: 134 QRS: 22 T: 6 INTERPRETIVE STATEMENTS: Normal sinus rhythm with sinus arrhythmia Nonspecific T wave abnormality Abnormal ECG Compared to ECG 11/29/2023 18:21:13 T-wave abnormality now present Sinus tachycardia no longer present Electronically Signed On 12-24-23 12:31:41 CDT by René Haq
[2023-12-24] MEDS ORDERED: hydrOXYzine HCL 25 MG TAB ONE (14:27)
[2023-12-24] MEDS ORDERED: ZIPRASIDONE MESYLA 20 MG/VIAL IM ONE (19:31)
[2023-12-24] MEDS ORDERED: WATER FOR INJ,STERILE 10 ML ONE (19:32)
[2023-12-25 09:59] VITALS: BP 122/87; TEMP 98.5; O2SAT 100
== END 2023-12-25 09:38 ==
LOC: ER 22:36
DX: F31.9 Bipolar disorder, unspecified (principal)
CPT/HCPCS: 36415; 51702; 81001; 93005; 96372; 99285